=== PATIENT | female | born 1985 | race Caucasian/White ===

== ENCOUNTER 2019-12-24 15:05 | Emergency (ER) | payer OTHER ==
[~2019-12-24] VITALS: Ht 160 cm; Wt 104.3 kg
[~2019-12-24 15:05] MED LIST: AMOXICILLIN500 M1 PO; AMOXICILLIN875 MG PO; CIPRO HC OTIC S10 ML OTIC; PERCOCET 5-3251 EACH PO
[2019-12-24] MEDS ORDERED: DOXYCYCLINE 10100 MG PO (18:01)
[2019-12-24 18:07] VITALS: BP 122/68
[2019-12-24] MEDS ORDERED: DIFLUCAN150 M1 PO (18:07)
== END 2019-12-24 18:08 | disposition home or self-care (01) ==
LOC: M.ERS 15:05
DX: L02.31 Cutaneous abscess of buttock (principal); Z90.49 Acquired absence of other specified parts of digestive tract